=== PATIENT | female | born 1955 | race American Indian/Alaskan Native ===

== ENCOUNTER 2018-02-10 14:02 | Emergency (ER) | payer MEDICAID ==
[2018-02-10 14:20] VITALS: BMI 29.8
[2018-02-10 14:22] VITALS: RESP 18
[2018-02-10] MEDS ORDERED: Albuterol 0.083% Inhal Sol (2.5 mg/3 mL) UD INH STA (15:24)
[2018-02-10] MEDS ORDERED: Albuterol 0.083% Inhal Sol (2.5 mg/3 mL) UD ONE (15:36)
[2018-02-10 16:15] LABS: B-TYPE NATRIURETIC PEPTIDE 87.9 pg/mL (0-900)
[2018-02-10 16:17] LABS: BASO # 0.1 K/uL (0.0-0.2); BASO % 0.5 % (0.0-2.0); EOS # 0.1 K/uL (0.0-0.7); EOS % 0.8 % (0.0-4.0); HEMOGLOBIN 12.4 g/dL (11.0-16.0); LYMPH # 4.2 K/uL (1.0-4.3); LYMPH % 32.8 % (20.0-40.0); MEAN CELL VOLUME 70.7 fL (81.0-99.0); MEAN CORPUSCULAR HEMOGLOBIN 22.6 pg (27.0-31.0); MEAN CORPUSCULAR HGB CONC 31.9 g/dL (33.0-37.0); MEAN PLATELET VOLUME 9.2 fL (7.2-11.7); MONO # 0.7 K/uL (0.0-0.8); MONO % 5.3 % (0.0-10.0); NEUT # 7.7 K/uL (1.8-7.0); NEUT % 60.6 % (50.0-75.0); NRBC % 0.1 % (0.0-2.0); RBC 5.51 Mil/uL (3.80-5.20); WHITE BLOOD COUNT 12.7 K/uL (4.8-10.8)
[2018-02-10 16:26] LABS: SQUAMOUS EPITHIAL < 1 /hpf (0-5); URINE BACTERIA OCC (<OCC); URINE BILIRUBIN NEGATIVE (NEGATIVE); URINE BLOOD NEGATIVE (NEGATIVE); URINE CLARITY Hazy (Clear); URINE COLOR Yellow (YELLOW); URINE GLUCOSE (UA) NORMAL (Normal); URINE LEUKOCYTE ESTERASE TRACE Leu/uL (Negative); URINE PROTEIN NEGATIVE (NEGATIVE)
[2018-02-10 16:32] LABS: ALB/GLOB RATIO 1.5 (1.0-2.1); ALBUMIN 4.6 g/dL (3.5-5.0); ALT/SGPT 32 U/L (9-52); AST/SGOT 25 U/L (14-36); BLOOD UREA NITROGEN 13 mg/dL (7-17); CALCIUM 9.3 mg/dl (8.6-10.4); CK-MB 0.59 ng/mL (0.0-3.38); GFR AFRICAN-AMERICAN > 60; GFR NON-AFRICAN AMERICAN > 60
--- NOTE | 2018-02-10 16:50 | RAD ---
Chest x-ray two views History: Shortness of breath. Comparison: 03/21/2015 Findings: Mild venous congestion. Right hilar prominence. Prominent bibasilar breast and nipple shadows. Top normal heart size. Biapical pleural thickening with upper lobe granulomatous changes. Scoliotic curvature of the spine. Impression: Mild venous congestion. Right hilar prominence. Prominent bibasilar breast and nipple shadows. Top normal heart size. Biapical pleural thickening with upper lobe granulomatous changes. Scoliotic curvature of the spine.
--- NOTE | 2018-02-10 17:02 | C.PDOC ---
History Of Present Illness 62 year old female presents to the emergency department with complaints of a cold that wont go away for the past 6 days, associated with coughing and congestion. Patient states she was seen by her PMD 4 days ago and was treated with a Z-amina; however, the symptoms persisted. Patient reports SOB when coughing but denies chest pain, fever, difficulty with swallowing, or abdominal pain. Time Seen by Provider: 02/10/18 14:38 Chief Complaint (Nursing): Cough, Cold, Congestion History Per: Patient History/Exam Limitations: no limitations Onset/Duration Of Symptoms: Days Current Symptoms Are (Timing): Still Present Past Medical History Reviewed: Historical Data, Nursing Documentation, Vital Signs Vital Signs: Last Vital Signs Temp 98.2 F 02/10/18 17:09 Pulse 68 02/10/18 17:09 Resp 18 02/10/18 17:09 BP 135/76 02/10/18 17:09 Pulse Ox 98 02/10/18 19:41 - Medical History PMH: HTN, Hypercholesterolemia Denies: Depression Family History: States: No Known Family Hx - Social History Hx Tobacco Use: No Hx Alcohol Use: No Hx Substance Use: No - Immunization History Hx Tetanus Toxoid Vaccination: No Hx Influenza Vaccination: No Hx Pneumococcal Vaccination: No Review Of Systems Except As Marked, All Systems Reviewed And Found Negative. Constitutional: Negative for: Fever, Chills ENT: Positive for: Nose Congestion, Other (no difficulty with swallowing) Cardiovascular: Negative for: Chest Pain Respiratory: Positive for: Cough, Shortness of Breath Gastrointestinal: Negative for: Nausea, Vomiting, Abdominal Pain Neurological: Negative for: Weakness, Numbness Physical Exam - Physical Exam Appears: Well, Non-toxic, No Acute Distress Skin: Normal Color, Warm, Dry Head: Atraumatic, Normacephalic Eye(s): bilateral: Normal Inspection, EOMI Ear(s): Bilateral: Normal Nose: Other (Nasal congestion) Oral Mucosa: Moist Tongue: No Swelling Lips: No Swelling Throat: Normal, No Erythema, No Exudate Neck: Normal ROM, Supple Chest: Symmetrical Cardiovascular: Rhythm Regular Respiratory: Normal Breath Sounds, No Rales, No Rhonchi, No Wheezing Gastrointestinal/Abdominal: Soft, No Tenderness Extremity: Normal ROM Neurological/Psych: Oriented x3, Normal Speech, Other (No focal deficits) ED Course And Treatment - Laboratory Results Result Diagrams: 02/10/18 15:46 02/10/18 15:46 ECG: Interpreted By Me, Viewed By Me ECG Rhythm: Sinus Rhythm Rate From EC O2 Sat by Pulse Oximetry: 98 (RA) Pulse Ox Interpretation: Normal - Other Rad Chest X-Ray X-Ray: Read By Radiologist Interpretation: Findings: Mild venous congestion. Right hilar prominence. Prominent bibasilar breast and nipple shadows. Top normal heart size. Biapical pleural thickening with upper lobe granulomatous changes. Scoliotic curvature of the spine. Impression: Mild venous congestion. Right hilar prominence. Prominent bibasilar breast and nipple shadows. Top normal heart size. Biapical pleural thickening with upper lobe granulomatous changes. Scoliotic curvature of the spine. Progress Note: EKG, labs, chest x-ray, and urinalysis ordered. Albuterol and nebulizer administered. On reassessment, pt states she feels better after the treatment. patient is resting comfortably with no wheezing, chest pain, or retractions. Oxygen saturation and breath sounds WNL. Patient would like to be discharged, requesting cough medicine. Discussed case with Dr. Alcala and agreed upon plan of discharge. Disposition - Disposition Disposition: HOME/ ROUTINE Disposition Time: 17:00 Condition: STABLE Additional Instructions: Follow up with your doctor in 1-2 days. Return to ER if symptoms persist or worsen. 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 - Scribe Statement The provider has reviewed the documentation as recorded by the Scribe All medical record entries made by the Scribe were at my direction and personally dictated by me. I have reviewed the chart and agree that the record accurately reflects my personal performance of the history, physical exam, medical decision making, and the department course for this patient. I have also personally directed, reviewed, and agree with the discharge instructions and disposition.
[2018-02-10 17:09] VITALS: BP 135/76; PULSE 68; TEMP 98.2
[2018-02-10 19:16] VITALS: O2SAT 98
--- NOTE | 2018-02-11 23:40 | CARD ---
APPROVED REPORT Date of service: 02/10/2018 EKG Measurement Heart [id number] DC [id number] <Conclusion> Normal sinus rhythm Possible Left atrial enlargement Left ventricular hypertrophy Nonspecific ST abnormality Abnormal ECG
== END 2018-02-10 17:30 | disposition home or self-care (01) ==
LOC: C.ER 14:02
DX: J40 Bronchitis, not specified as acute or chronic (principal); J06.9 Acute upper respiratory infection, unspecified; I10 Essential (primary) hypertension; E78.00 Pure hypercholesterolemia, unspecified

== ENCOUNTER 2018-04-03 20:57 | Emergency (ER) | payer MEDICAID ==
[2018-04-03 20:58] VITALS: BMI 29.8
[2018-04-03 21:23] VITALS: BP 133/79; PULSE 69; RESP 19; TEMP 98.2; O2SAT 95
[2018-04-03] MEDS ORDERED: Lidocaine 5% Patch TD ONE (21:57)
--- NOTE | 2018-04-03 22:00 | C.PDOC ---
History Of Present Illness 63 y/o female with htn c/o left lower back pain. worse with movement since this morning. pt took 2 advil with no relief. no saddle anesthesia, no numbness or tingling, no lower ext weakness. no bladder or bowel dysfucntions. pt sts she moved her bedroom furniture around yesterday. pt also c/o cough, nasal congestion x 1 day, no fever or chills, no sob. Time Seen by Provider: 04/03/18 21:27 Chief Complaint (Nursing): Cough, Cold, Congestion History Per: Patient History/Exam Limitations: no limitations Onset/Duration Of Symptoms: Days (1) Current Symptoms Are (Timing): Still Present Quality Of Discomfort: Unable To Describe, "Pain" Severity: Moderate Exacerbating Factor(s): Turning, Movement Past Medical History Reviewed: Historical Data, Nursing Documentation, Vital Signs Vital Signs: Last Vital Signs Temp 98.2 F 04/03/18 21:20 Pulse 69 04/03/18 21:20 Resp 19 04/03/18 21:20 BP 133/79 04/03/18 21:20 Pulse Ox 95 04/03/18 21:20 - Medical History PMH: HTN, Hypercholesterolemia Denies: Depression Family History: States: Unknown Family Hx - Social History Hx Tobacco Use: No Hx Alcohol Use: No Hx Substance Use: No - Immunization History Hx Tetanus Toxoid Vaccination: No Hx Influenza Vaccination: No Hx Pneumococcal Vaccination: No Review Of Systems Constitutional: Negative for: Fever, Chills ENT: Positive for: Nose Congestion. Negative for: Ear Pain Cardiovascular: Negative for: Chest Pain Respiratory: Negative for: Cough, Shortness of Breath Gastrointestinal: Negative for: Abdominal Pain Skin: Negative for: Rash, Bruising Neurological: Negative for: Weakness, Numbness Physical Exam - Physical Exam Appears: Non-toxic, Other (uncomfortable) Skin: Warm, Dry Head: Atraumatic, Normacephalic Eye(s): bilateral: Normal Inspection Oral Mucosa: Moist Tongue: Normal Appearing Lips: Normal Appearing Neck: No Midline Cervical Tenderness, No Paracervical Tenderness Chest: No Deformity, No Tenderness Cardiovascular: Rhythm Regular, No Murmur Respiratory: No Decreased Breath Sounds, No Accessory Muscle Use, No Wheezing Back: No Vertebral Tenderness, Paraspinal Tenderness (left lumbar) Pulses: Left Dorsalis Pedis: Normal, Right Dorsalis Pedis: Normal Neurological/Psych: Oriented x3, Normal Speech, Normal Cognition, Normal Motor, Normal Sensation ED Course And Treatment O2 Sat by Pulse Oximetry: 95 Medical Decision Making Medical Decision Making: pt with uri symptoms, also left back paoin. uri tx supportively and d/c with tyleno,l and muscle relaxant Disposition Counseled Patient/Family Regarding: Diagnosis, Need For Followup, Rx Given - Disposition Referrals: Jessica Swenson MD [Medical Doctor] - Disposition: HOME/ ROUTINE Disposition Time: 22:36 Condition: GOOD Additional Instructions: Take lidoderm patch off in 12 hours. Take Tylneol and ibupforen as prescribed. Take muscle relaxant up to 3 times a day- makes you sleepy. No driving or operating machinery. Follow u with your doctor. Prescriptions: Acetaminophen [Tylenol 325mg tab] 650 mg PO Q4 #50 tab Cyclobenzaprine [Flexeril] 5 mg PO TID #12 tab Ibuprofen [Motrin] 600 mg PO TID #30 tab Instructions: Upper Respiratory Infection (ED), Lumbar Muscle Strain (DC) Forms: [employer] (Tristanian), General Discharge Instructions - Clinical Impression Clinical Impression: Lumbar sprain, Upper respiratory infection
[2018-04-04] MEDS ORDERED: Lidocaine 5% Patch TD SCH (10:00)
== END 2018-04-03 22:35 | disposition home or self-care (01) ==
LOC: C.ER 20:57
DX: S33.5XXA Sprain of ligaments of lumbar spine, initial encounter (principal); X50.0XXA Overexertion from strenuous movement or load, initial encounter; Y93.E9 Activity, other interior property and clothing maintenance; Y92.003 Bedroom of unspecified non-institutional (private) residence as the place of occurrence of the external cause; J06.9 Acute upper respiratory infection, unspecified
CPT/HCPCS: 96372; 99284; J1885

== ENCOUNTER 2018-08-17 10:03 | Emergency (ER) | payer MEDICAID ==
[2018-08-17 10:03] VITALS: BMI 29.8
[2018-08-17 10:08] VITALS: O2SAT 98
[2018-08-17] MEDS ORDERED: Benzocaine/Menthol (Cepacol) Lozenge MT ONE (10:43)
--- NOTE | 2018-08-17 11:00 | C.PDOC ---
History Of Present Illness 63 y/o female pt with hx of HTN and chronic low back pain presents to the ER c/o cold for x2 days. Associated sx includes nasal congestion, non-productive cough, sore throat and chest pain when coughing. Pt denies fever, running nose and body ache. Time Seen by Provider: 08/17/18 10:36 Chief Complaint (Nursing): Cough, Cold, Congestion History Per: Patient History/Exam Limitations: no limitations Onset/Duration Of Symptoms: Days (x2) Current Symptoms Are (Timing): Still Present Past Medical History Reviewed: Historical Data, Nursing Documentation, Vital Signs Vital Signs: Last Vital Signs Temp 98.4 F 08/17/18 10:06 Pulse 78 08/17/18 10:06 Resp 15 08/17/18 10:06 BP 166/78 H 08/17/18 10:06 Pulse Ox 98 08/17/18 10:06 - Medical History PMH: HTN, Hypercholesterolemia Family History: States: Unknown Family Hx - Social History Hx Tobacco Use: No Hx Alcohol Use: No Hx Substance Use: No - Immunization History Hx Tetanus Toxoid Vaccination: No Hx Influenza Vaccination: No Hx Pneumococcal Vaccination: No Review Of Systems Except As Marked, All Systems Reviewed And Found Negative. Constitutional: Negative for: Fever ENT: Positive for: Nose Congestion, Throat Pain. Negative for: Nose Discharge Cardiovascular: Positive for: Chest Pain (when coughing ) Respiratory: Positive for: Cough (non-productive) Musculoskeletal: Negative for: Other (body aches ) Physical Exam - Physical Exam Appears: Non-toxic, No Acute Distress Skin: Warm, Dry, No Rash Head: Normacephalic Eye(s): bilateral: Normal Inspection Ear(s): Bilateral: Normal Nose: Normal Oral Mucosa: Moist Throat: Normal, No Erythema, No Exudate, Other (uvula midline ) Cardiovascular: Rhythm Regular Respiratory: Normal Breath Sounds Neurological/Psych: Oriented x3, Normal Speech ED Course And Treatment O2 Sat by Pulse Oximetry: 98 (RA) Pulse Ox Interpretation: Normal - Other Rad chest X-Ray: Read By Radiologist Interpretation: Accession No. : [id number]. Patient Name / ID : LURDES SUTTON / [id number]. Exam Date : 08/17/2018 10:46:04 ( Approved ). Study Comment : Sex / Age : F / 63Y. Creator : Elijah Betancourt MD. Dictator : Elijah Betancourt MD. Television Mechanic : Final Inspector Motorcyles : Elijah Betancourt MD. Approver2 : Report Date : 08/17/2018 11:51:48. My Comment : . Date of service: 08/17/2018. HISTORY: pain with coughing. COMPARISON: 02/10/2018. TECHNIQUE: Chest PA and lateral. FINDINGS: LUNGS: No active pulmonary disease. PLEURA: No significant pleural effusion identified. No pneumothorax apparent. CARDIOVASCULAR: No aortic atherosclerotic calcification present. Normal cardiac size. No pulmonary vascular congestion. OSSEOUS STRUCTURES: Thoracic dextroscoliosis. VISUALIZED UPPER ABDOMEN: Normal. OTHER FINDINGS: None. IMPRESSION: No active disease. Medical Decision Making Medical Decision Making: Impression: cold sx Plans: -- CXR -- Tylenol -- cepacol -- Claritin Disposition - Disposition Referrals: [facility] [place]] [facility] [Outside] [facility] [place] [Outside] Disposition: HOME/ ROUTINE Disposition Time: 12:35 Condition: GOOD Additional Instructions: Follow up with your PCP and take Motrin for pain and sudafed for nasal congestion. Prescriptions: Ibuprofen [Motrin] 600 mg PO Q6 #20 tab Pseudoephedrine HCl [Sudafed] 30 mg PO Q8 #12 tablet Instructions: Upper Respiratory Infection (ED) Forms: [employer] (Egyptian) - Clinical Impression Clinical Impression: Upper respiratory infection - Scribe Statement The provider has reviewed the documentation as recorded by the Scribpati Proctor Do Provider Attestation: All medical record entries made by the Scribe were at my direction and personally dictated by me. I have reviewed the chart and agree that the record accurately reflects my personal performance of the history, physical exam, medical decision making, and the department course for this patient. I have also personally directed, reviewed, and agree with the discharge instructions and disposition.
--- NOTE | 2018-08-17 11:55 | RAD ---
Date of service: 08/17/2018 HISTORY: pain with coughing COMPARISON: 02/10/2018 TECHNIQUE: Chest PA and lateral FINDINGS: LUNGS: No active pulmonary disease. PLEURA: No significant pleural effusion identified. No pneumothorax apparent. CARDIOVASCULAR: No aortic atherosclerotic calcification present. Normal cardiac size. No pulmonary vascular congestion. OSSEOUS STRUCTURES: Thoracic dextroscoliosis VISUALIZED UPPER ABDOMEN: Normal. OTHER FINDINGS: None. IMPRESSION: No active disease.
[2018-08-17 12:36] VITALS: BP 127/74; PULSE 60; RESP 18; TEMP 98.2
== END 2018-08-17 12:36 | disposition home or self-care (01) ==
LOC: C.ER 10:03
DX: J06.9 Acute upper respiratory infection, unspecified (principal)